=== PATIENT | female | born 1980 | race Caucasian/White ===

== ENCOUNTER 2016-04-01 15:25 | Outpatient (RCR) | payer BC ==
[~2016-04-01 15:25] MED LIST: NO HOME MEDICATIONS; [UNRECOGNIZED DRUG - OTHER] PO
[2016-04-01 15:30] VITALS: BP 112/70
[2016-04-01] MEDS ORDERED: COPAXONE40 MG/ML SC (15:38)
--- NOTE | 2016-04-01 15:54 | NUR ---
Per physicians order, medication was infused over one hour.
[2016-04-01 16:59] VITALS: BP 107/67
[2016-04-02 11:13] VITALS: BP 127/80
[2016-04-02 12:30] VITALS: BP 120/77
== END 2016-06-30 | disposition home or self-care (01) ==
LOC: AMSURD
DX: G35 Multiple sclerosis (principal)
CPT/HCPCS: J2930; J7050

== ENCOUNTER → 2017-08-06 | Outpatient (CLI) | payer BC ==
[~2017-08-06] MED LIST changes: +COPAXONE40 MG/ML SC
[2017-08-06 08:24] LABS: HEMATOCRIT 39.8 % (37.0-47.0); HEMOGLOBIN 13.4 g/dL (12.5-16.0); MEAN PLATELET VOLUME 10.2 fl (7.4-10.4); RED BLOOD COUNT 4.21 M/mm3 (4.10-5.30); RED CELL DISTRIBUTION WIDTH 12.4 % (11.5-14.5); WHITE BLOOD COUNT 4.9 K/mm3 (4.8-10.8)
[2017-08-06 08:42] LABS: ALBUMIN 4.3 g/dL (3.5-5.0); BUN/CREATININE RATIO 22.7 (6.0-26.0); CALCIUM 8.9 mg/dL (8.4-10.2); TOTAL BILIRUBIN 0.3 mg/dL (0.2-1.3); TOTAL PROTEIN 7.2 g/dL (6.3-8.2)
[2017-08-06 22:31] LABS: HOMOCYSTEINE SERUM OR PLASMA 4.9 umol/L (4.0-14.0)
[2017-08-06 22:51] LABS: C-REACTIVE PROTEIN XXX
[2017-08-06 23:48] LABS: T3 TOTAL 100 ng/dL (87-178)
[2017-08-07 01:32] LABS: INSULIN 6 uIU/mL (2-23)
== END ==
LOC: LAB 07:55
PROVIDERS: Family Medicine
DX: Z01.419 Encounter for gynecological examination (general) (routine) without abnormal findings (principal); R73.9 Hyperglycemia, unspecified

== ENCOUNTER 2017-10-11 10:24 | Outpatient (RCR) | payer BC ==
[~2017-10-11] VITALS: Ht 167.6 cm; Wt 59.1 kg
[2017-10-11 11:00] VITALS: BP 100/65
[2017-10-12 09:15] VITALS: BP 115/66
[2017-10-12] MEDS ORDERED: ERGOCALCIFER50000 IU PO (09:21)
[2017-10-12 10:28] VITALS: BP 93/63
[2017-10-13 10:07] VITALS: BP 93/62
[2017-10-13 11:34] VITALS: BP 99/64
[2017-10-14 09:32] VITALS: BP 107/72
[2017-10-15 10:00] VITALS: BP 111/69
[2017-10-15 10:53] VITALS: BP 109/66
== END 2017-10-15 10:57 | disposition home or self-care (01) ==
LOC: AMSURD 10:24
DX: G35 Multiple sclerosis (principal)
CPT/HCPCS: J2930; J7050

== ENCOUNTER → 2018-05-12 | Outpatient (CLI) | payer OTHER ==
[~2018-05-12] MED LIST changes: +ERGOCALCIFER50000 IU PO
== END ==
LOC: RAD 08:24
DX: Z34.92 Encounter for supervision of normal pregnancy, unspecified, second trimester (principal); Z3A.19 19 weeks gestation of pregnancy

== ENCOUNTER → 2019-02-04 | Outpatient (CLI) | payer OTHER | LOC: RAD 09:11 | DX: Q67.7 Pectus carinatum (principal) ==

== ENCOUNTER 2019-03-01 08:19 | Outpatient (RCR) | payer OTHER ==
[2019-02-25 11:33] VITALS: BP 105/68
[2019-02-25 12:45] VITALS: BP 111/69
[2019-02-26 08:41] VITALS: BP 111/69
[2019-02-27 11:38] VITALS: BP 95/61
[2019-02-27 12:54] VITALS: BP 111/48
[2019-02-28 08:40] VITALS: BP 98/51
[2019-02-28 09:52] VITALS: BP 101/57
[~2019-03-01] VITALS: Ht 167.6 cm; Wt 61.4 kg
[2019-03-01 08:41] VITALS: BP 99/57
[2019-03-01 09:58] VITALS: BP 111/63
== END 2019-03-01 11:00 | disposition home or self-care (01) ==
LOC: AMSURD 08:19
DX: Z51.81 Encounter for therapeutic drug level monitoring (principal); Z79.899 Other long term (current) drug therapy
CPT/HCPCS: J2930; J7050

== ENCOUNTER 2019-08-19 08:32 | Outpatient (RCR) | payer SELFPAY ==
[2019-08-18 08:51] VITALS: BP 96/60
[2019-08-18 10:11] VITALS: BP 92/61
--- NOTE | 2019-08-18 10:18 | NUR ---
PATIENT WILL RETURN TOMORROW FOR 2ND INFUSION. SHE SPOKE WITH ORDERING PROVIDER REGARDING LENGTH OF TX. ORDER IS FOR 5 DAYS, BUT PATIENT MAY ONLY DO 3 DAYS.
[~2019-08-19] VITALS: Ht 172.7 cm; Wt 71.6 kg
[~2019-08-19 08:32] MED LIST changes: +COPAXONE40 MG/ML SQ
[2019-08-19 08:45] VITALS: BP 94/56
[2019-08-19 09:58] VITALS: BP 98/68
[2019-08-20 08:58] VITALS: BP 99/63
[2019-08-20 10:04] VITALS: BP 97/64
== END 2019-11-16 | disposition still patient (30) ==
LOC: AMSURD
DX: G35 Multiple sclerosis (principal); Z79.899 Other long term (current) drug therapy
CPT/HCPCS: J2930; J7050